=== PATIENT | male | born 1990 | race Caucasian/White ===

== ENCOUNTER → 2020-01-19 13:06 | Outpatient (CLI) | payer BC, SELFPAY ==
--- NOTE | 2020-01-19 13:18 | US_ITS ---
PROCEDURE: US TESTICULAR CLINICAL INDICATION: Right testicular pain for 1 month COMPARISON: No exams were available for comparison FINDINGS: Both testicles are imaged and appear normal in size and showing normal homogeneous echogenicity. The epididymis appears normal bilaterally. Vascularity is normal bilaterally. IMPRESSION: Essentially unremarkable ultrasound of the testicles bilaterally. Dictated by: Dr. Louis Pulido MD 01/19/2020 15:[address] Louis Pulido MD in [place] 01/19/2020 15:05
== END ==
PROVIDERS: PCP Nurse Practitioner Family; Visit Provider Urology
DX: N50.811 Right testicular pain (principal)
CPT/HCPCS: 76870